=== PATIENT | male | born 1980 | race African-American/Black ===

== ENCOUNTER 2018-12-01 08:52 | Day surgery (SDC) | payer OTHER, SELFPAY | END 2018-12-01 14:28 | disposition home or self-care (01) | PROVIDERS: Visit Provider Orthopaedic Surgery | DX: S62.306A Unspecified fracture of fifth metacarpal bone, right hand, initial encounter for closed fracture (principal); S62.304A Unspecified fracture of fourth metacarpal bone, right hand, initial encounter for closed fracture; W22.8XXA Striking against or struck by other objects, initial encounter; F17.210 Nicotine dependence, cigarettes, uncomplicated | CPT/HCPCS: 26615 ×2; 73120; 76000; C1713 ×2; J0690; J1100; J2001; J2250; J2405; J2704; J3010 ×3 ==

== ENCOUNTER → 2019-03-22 | Outpatient (CLI) | payer OTHER, SELFPAY | DX: Z01.89 Encounter for other specified special examinations (principal); Z13.6 Encounter for screening for cardiovascular disorders | CPT/HCPCS: 71046 ==

== ENCOUNTER 2019-10-26 15:37 | Outpatient (CLI) | payer OTHER, SELFPAY ==
--- NOTE | 2019-10-26 15:44 | XR_ITS ---
WS: [id number] Chest 2 views, 10/26/2019 Clinical Data: REGULATED PROGRAM MONITORING Comparison: PA and lateral chest, 03/22/2019. Findings: No nodules, masses or effusions are seen. The heart is normal. The pulmonary vascularity is not increased. No pneumonia or pneumothorax is seen. XR/XR chest 2V* [id number] Impression: Negative chest.
== END 2019-10-26 15:38 | disposition home or self-care (01) ==
LOC: RADWPI 15:40
PROVIDERS: Visit Provider Preventive Medicine Occupational Medicine
DX: Z01.89 Encounter for other specified special examinations (principal)
CPT/HCPCS: 71046

== ENCOUNTER → 2020-03-12 16:30 | Outpatient (BNVA) | payer SELFPAY | PROVIDERS: Visit Provider Nurse Practitioner Family | DX: Z20.828 Contact with and (suspected) exposure to other viral communicable diseases (principal); J06.9 Acute upper respiratory infection, unspecified; R43.0 Anosmia | CPT/HCPCS: 87635 ==

== ENCOUNTER → 2020-10-23 11:21 | Outpatient (BNVA) | payer OTHER, SELFPAY | PROVIDERS: Visit Provider Nurse Practitioner Family | DX: Z20.822 Contact with and (suspected) exposure to COVID-19 (principal) | CPT/HCPCS: 87635 ==

== ENCOUNTER → 2021-01-04 12:02 | Outpatient (BNVA) | payer OTHER, SELFPAY | PROVIDERS: Visit Provider Nurse Practitioner Family | DX: Z20.822 Contact with and (suspected) exposure to COVID-19 (principal) | CPT/HCPCS: 87635 ==

== ENCOUNTER → 2021-02-28 10:50 | Outpatient (BNVA) | payer OTHER, SELFPAY | PROVIDERS: Visit Provider Emergency Medicine | DX: Z20.822 Contact with and (suspected) exposure to COVID-19 (principal) | CPT/HCPCS: 87635 ==

== ENCOUNTER 2021-04-12 12:12 | Emergency (ER) | payer SELFPAY ==
[2021-04-12 12:21] VITALS: BP 164/90; PULSE 74; RESP 14; TEMP 37.1; O2SAT 97; BMI 30.9
--- NOTE | 2021-04-12 12:30 | ECG_ITS ---
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 Measurements Intervals [place] Rate: 70 P: 56 GA: 157 QRS: 64 QRSD: 92 T: -8 QT: 351 QTc: 379 Interpretive Statements SINUS RHYTHM ABNORMAL QRS-T ANGLE [QRS-T AXIS DIFFERENCE > 60] No previous ECG available for comparison Electronically Signed On 04-13-2021 4:48:24 USED CAR SALES SUPERVISOR by Faraz Schwab M.D. [id number]
--- NOTE | 2021-04-12 12:30 | XR_ITS ---
WS: [id number] CHEST XRAY TECHNIQUE: Portable chest. CLINICAL INFORMATION: dyspnea/cough COMPARISON: October 26, 2019 FINDINGS: Heart: Heart size upper limits of normal. Lungs: Lungs are clear. No consolidation or pleural effusion. No acute pulmonary infiltrates. Bones: Normal visualized bony structures. XR/XR chest 1V portable [id number] IMPRESSION: 1. Heart size upper limits of normal. 2. No acute pulmonary infiltrates.
--- NOTE | 2021-04-12 12:30 | W.ED.FEVER ---
HPI - Fever General: Chief Complaint: Fever Stated Complaint: fever, shaking Time Seen by Provider: 04/12/21 12:21 History of Present Illness: HPI Narrative: 40-year-old male presents to the emergency room with complaint of fever and shaking. Has had chills fatigue myalgias headache for the last 2 days he reports a temp up to 103. He denies any cough no anosmia. Denies any dysuria urgency or frequency. No chest pain no abdominal pain. No hematuria no hematochezia melena hematemesis coffee-ground emesis. MD elicited complaint: fever and malaise Onset (ago): day(s) (2) Exacerbating factors: nothing Relieving factors: nothing Associated symptoms: Reports chills and myalgias; Deny abdominal pain, flank pain, chest pain, confusion, cough, diarrhea, dysuria, extremity pain, headache(s), nasal congestion, nausea, night sweats, rash, rhinorrhea, short of breath, sinus pain, stiffness, sore throat, vomiting or weight loss Treatments prior to arrival fever: acetaminophen Review of Systems Const: Reports: chills; Denies: night sweats ENMT: Denies: nasal congestion or sinus pain Card: Denies: chest pain Resp: Denies: dyspnea, productive cough or non-productive cough GI: Denies: abdominal pain, nausea, vomiting or diarrhea : Denies: flank pain or dysuria Musc: Denies: extremity pain Skin/Breast: Denies: rash or pruritus Neuro: Denies: headache(s) or confusion PFS ED PFSH: Social History Smoking and tobacco status: current every day smoker cigarettes Packs smoked per day: 1 Alcohol intake: never Physical Exam Const: COMMON NORMALS: no acute distress GENERAL APPEARANCE: cooperative and comfortable ORIENTATION/CONSCIOUSNESS: Yes awake, Yes oriented to person, Yes oriented to place and Yes oriented to time HENMT: COMMON NORMALS: normocephalic, atraumatic and hearing grossly normal bilaterally HEAD & SCALP: normocephalic and atraumatic Neck/C-Spine: COMMON NORMALS: no JVD Lymph: LYMPHATIC: no lymphadenopathy noted and no lymphedema noted Resp: COMMON NORMALS: normal respiratory effort, No retractions, No use of accessory muscles and clear to auscultation bilaterally AUSCULTATION: clear to auscultation bilaterally Cardio: COMMON NORMALS: no JVD, regular rate, regular rhythm and No murmurs present (Cardio) RATE: regular rate RHYTHM: regular rhythm GI: COMMON NORMALS: Soft to palpation and No hepatosplenomegaly present AUSCULTATION: Yes normoactive bowel sounds PALPATION: Yes Soft to palpation, No Tenderness to palpation present (GI), No Guarding due to palpation present (GI) and Yes No hepatosplenomegaly present Extremity: COMMON NORMALS: normal to inspection, capillary refill normal, no clubbing, cyanosis or edema, no calf tenderness and no pedal edema Neuro: SENSORIUM/ORIENTATION: Yes oriented to person, Yes oriented to place and Yes oriented to time Skin: COMMON NORMALS: no rashes or lesions noted GENERAL SKIN EXAM: no rashes or lesions noted Course Vital Signs: Vital signs: Vital Signs Temperature 98.8 F 04/12/21 12:21 Pulse Rate 76 04/12/21 16:19 Respiratory Rate 18 04/12/21 16:19 Blood Pressure 139/90 04/12/21 16:19 Pulse Oximetry 97 04/12/21 16:19 MDM - Fever MDM Narrative: Medical decision making narrative: Patient Covid positive. Based on the history suspected he would be. He also had self prone began to breathe better. His oxygen sats are good he is not require any oxygen at this point he can be discharged home he would like to do monoclonal antibodies we will try to set that up through the case resolution specialist. Lab Data: Labs: Lab Results 04/12/21 04/12/21 04/12/21 13:00 13:00 13:00 WBC 3.5 10^3/uL L 10^ 3/uL (4.0-10.0) RBC 5.61 10^6/uL H 10 ^6/uL (4.1-5.3) Hgb 12.6 g/dL g/dL (11.7-16.6) Hct 40.0 % L % (42.0-52.0) MCV 71.3 fl L fl (80-94) MCH 22.5 pg L pg (28.0-34.0) MCHC 31.5 g/dL g/dL (30.0-36.0) RDW 17.8 % H % (12.1-15.1) Plt Count 263 10^3/cmm 10^3 /cmm (130-400) MPV 10.2 fL fL (7.4-10.4) Neut % (Auto) 39.4 % % Lymph % (Auto) 47.5 % % [facility] % (Auto) 12.5 % % Eos % (Auto) 0.0 % % Baso % (Auto) 0.3 % % Neut # (Auto) 1.36 10^3/uL L 10 ^3/uL (1.8-7.7) Lymph # (Auto) 1.6 10^3/uL 10^3/ uL (0.8-4.8) [facility] # (Auto) 0.4 10^3/uL 10^3/ uL (0.2-0.9) Eos # (Auto) 0.0 10^3/uL 10^3/ uL (0.0-0.8) Baso # (Auto) 0.0 10^3/uL 10^3/ uL (0.0-0.1) Nucleated RBC % (a uto) 0 % % Nucleated RBCs # 0.0 /100WBC /100W BC Sodium Cancelled Potassium Cancelled Chloride Cancelled Carbon Dioxide Cancelled Anion Gap Cancelled BUN Cancelled Creatinine Cancelled GFR Calculation Cancelled Glucose Cancelled Calculated Osmolal ity Cancelled Lactate Cancelled Calcium Cancelled Total Bilirubin Cancelled AST Cancelled ALT Cancelled Alkaline Phosphata se Cancelled NT-Pro-B Natriuret Pep Cancelled Total Protein Cancelled Albumin Cancelled Globulin Cancelled Lipase Coronavirus 229E ( PCR) Hepatitis A IgM Ab Hep Bs Antigen Hep B Core IgM Ab Hepatitis C Antibo dy SARS-CoV-2 (PCR) 04/12/21 04/12/21 04/12/21 13:00 13:45 13:45 WBC RBC Hgb Hct MCV MCH MCHC RDW Plt Count MPV Neut % (Auto) Lymph % (Auto) [facility] % (Auto) Eos % (Auto) Baso % (Auto) Neut # (Auto) Lymph # (Auto) [facility] # (Auto) Eos # (Auto) Baso # (Auto) Nucleated RBC % (a uto) Nucleated RBCs # Sodium 136 mmol/L mmol/L (136-145) Potassium 4.1 mmol/L mmol/L (3.5-5.1) Chloride 102 mmol/L mmol/L (98-107) Carbon Dioxide 19 mmol/L L mmol/ L (22-29) Anion Gap 19.1 H (5-19) BUN 13 mg/dL mg/dL (6-20) Creatinine 1.1 mg/dL mg/dL (0.7-1.2) GFR Calculation 89.7 mL/min L mL/ min (90-130) Glucose 93 mg/dL mg/dL (65-115) Calculated Osmolal ity 282 mOsm/kg L mOs m/kg (285-295) Lactate 0.6 mmol/L mmol/L (0.5-2.2) Calcium 8.0 mg/dL L mg/dL (8.5-10.5) Total Bilirubin 0.2 mg/dL mg/dL (0.15-1.2) AST 54 U/L H U/L (0-40) ALT 84 U/L H U/L (0-41) Alkaline Phosphata se 103 IU/L IU/L (40-130) NT-Pro-B Natriuret Pep 71 pg/mL pg/mL (0-125) Total Protein 7.0 g/dL g/dL (6.6-8.7) Albumin 3.9 g/dL g/dL (3.5-5.2) Globulin 3.1 g/dL g/dL (1.3-4.6) Lipase Coronavirus 229E ( PCR) Not detected (NOT DETECT) Hepatitis A IgM Ab Hep Bs Antigen Hep B Core IgM Ab Hepatitis C Antibo dy SARS-CoV-2 (PCR) Detected A (NOT DETECT) 04/12/21 04/12/21 13:45 15:10 WBC RBC Hgb Hct MCV MCH MCHC RDW Plt Count MPV Neut % (Auto) Lymph % (Auto) [facility] % (Auto) Eos % (Auto) Baso % (Auto) Neut # (Auto) Lymph # (Auto) [facility] # (Auto) Eos # (Auto) Baso # (Auto) Nucleated RBC % (a uto) Nucleated RBCs # Sodium Potassium Chloride Carbon Dioxide Anion Gap BUN Creatinine GFR Calculation Glucose Calculated Osmolal ity Lactate Calcium Total Bilirubin AST ALT Alkaline Phosphata se NT-Pro-B Natriuret Pep Total Protein Albumin Globulin Lipase 42 U/L U/L (13-60) Coronavirus 229E ( PCR) Hepatitis A IgM Ab Non-reactive (Nonreactive) Hep Bs Antigen Non-reactive (Nonreactive) Hep B Core IgM Ab Non-reactive (Nonreactive) Hepatitis C Antibo dy Non-reactive (Nonreactive) SARS-CoV-2 (PCR) Discharge Plan Discharge Patient Disposition: Home Clinical Impression: COVID-19 Condition: Stable Prescriptions: No Action Tylenol Ex Str Rapid Release 500 mg Tablet 2,000 mg PO Q6H PRN (Reason: PAIN/FEVER) RF: 0 ibuprofen 200 mg Tablet 800 mg PO Q4H PRN (Reason: PAIN/FEVER) RF: 0 Excedrin Migraine 250-250-65 mg Tablet 4 tab PO Q6H PRN (Reason: Migraine Headache) RF: 0 Discharge Orders: Discharge ED (Routine); Ordered 04/12/21 Ordered By: Jaime Nguyen Other Ambulatory Orders: Request for MCA (Routine) Timeframe: 1 Day Facility: [facility] - Location: Outpatient [facility] Ordered By: Jaime Nguyen Patient Instructions: Opioid Safety Coding Level of Care Code ED Microcomputer Support Specialist for Chg Fwd Exam Comprehensive
[2021-04-12 13:12] LABS: Basophils % 0.3 %; Hemoglobin 12.6 g/dL (11.7-16.6); Lymphocytes # 1.6 10^3/uL (0.8-4.8); Lymphocytes % 47.5 %; Mean Corpuscular HGB Conc 31.5 g/dL (30.0-36.0); Mean Corpuscular Hemoglobin 22.5 pg (28.0-34.0); Mean Corpuscular Volume 71.3 fl (80-94); Mean Platelet Volume 10.2 fL (7.4-10.4); Monocytes # 0.4 10^3/uL (0.2-0.9); Monocytes % 12.5 %; Neutrophils # 1.36 10^3/uL (1.8-7.7); Neutrophils % 39.4 %; Nucleated Red Blood Cells % 0 %; Platelet Count 263 10^3/cmm (130-400); Red Blood Count 5.61 10^6/uL (4.1-5.3); Red Cell Distribution Width 17.8 % (12.1-15.1); White Blood Count 3.5 10^3/uL (4.0-10.0)
[2021-04-12 13:32] VITALS: BP 131/83; PULSE 70; PULSE 72; RESP 18; O2SAT 96
[2021-04-12 14:12] LABS: Lactate (Lactic Acid level) 0.6 mmol/L (0.5-2.2)
[2021-04-12 14:22] LABS: Alanine Aminotransferase 84 U/L (0-41); Albumin Level 3.9 g/dL (3.5-5.2); Alkaline Phosphatase 103 IU/L (40-130); Anion Gap 19.1 (5-19); Aspartate Amino Transferase 54 U/L (0-40); Blood Urea Nitrogen 13 mg/dL (6-20); Carbon Dioxide 19 mmol/L (22-29); Chloride 102 mmol/L (98-107); Globulin 3.1 g/dL (1.3-4.6); Glomerular Filtration Rate 89.7 mL/min (90-130); Glucose 93 mg/dL (65-115); NT Pro B Type Natriuretic Pept 71 pg/mL (0-125); Osmolality Calculated 282 mOsm/kg (285-295); Potassium 4.1 mmol/L (3.5-5.1); Sodium 136 mmol/L (136-145); Total Bilirubin 0.2 mg/dL (0.15-1.2)
[2021-04-12 15:00] VITALS: BP 139/90; PULSE 76; RESP 18; O2SAT 97
[2021-04-12 15:00] LABS: Lipase 42 U/L (13-60)
[2021-04-12 15:00] LABS: Adenovirus Not Detected (NOT DETECT); Chlamydia Pneumoniae Not Detected (NOT DETECT); Coronavirus 229E,HKU1,NL63,OC4 Not Detected (NOT DETECT); Human Metapneumovirus Not Detected (NOT DETECT); Human Rhinovirus/Enterovirus Not Detected (NOT DETECT); Influenza A Not Detected (NOT DETECT); Influenza A H1 Not Detected (NOT DETECT); Influenza A H1-2009 Not Detected (NOT DETECT); Influenza A H3 Not Detected (NOT DETECT); Influenza B Not Detected (NOT DETECT); Mycoplasma Pneumoniae Not Detected (NOT DETECT); Parainfluenza Virus Type 1 Not Detected (NOT DETECT); Parainfluenza Virus Type 2 Not Detected (NOT DETECT); Parainfluenza Virus Type 3 Not Detected (NOT DETECT); Parainfluenza Virus Type 4 Not Detected (NOT DETECT); Respiratory Syncytial Virus A Not Detected (NOT DETECT); Respiratory Syncytial Virus B Not Detected (NOT DETECT); SARS-COV-2 Detected (NOT DETECT)
[2021-04-12 16:01] LABS: Hepatitis A Antibody IgM Non-Reactive (Nonreactive); Hepatitis B Core IgM Non-Reactive (Nonreactive); Hepatitis B Surface Antigen Non-Reactive (Nonreactive); Hepatitis C Virus Antibody Non-Reactive (Nonreactive)
[2021-04-12 16:19] VITALS: BP 139/90; PULSE 76; RESP 18; O2SAT 97
== END 2021-04-12 16:20 | disposition home or self-care (01) ==
PROVIDERS: Physician Assistant; Emergency Provider Family Medicine
DX: U07.1 COVID-19 (principal); F17.210 Nicotine dependence, cigarettes, uncomplicated
CPT/HCPCS: 71045; 80053; 80074; 83605; 83690; 83880; 85025; 87040; 87205; 87635; 93005; 99284

== ENCOUNTER 2021-04-15 14:24 | Outpatient (CLI) | payer SELFPAY ==
[2021-04-15 14:29] VITALS: BMI 30.5
[2021-04-15 14:40] VITALS: BP 130/77; PULSE 78; RESP 20; TEMP 37.1; O2SAT 98
[2021-04-15 15:00] VITALS: BP 132/87; PULSE 75; RESP 20; TEMP 37; O2SAT 98
[2021-04-15 16:00] VITALS: BP 138/91; PULSE 73; RESP 17; TEMP 37.1; O2SAT 98
== END 2021-04-15 14:25 | disposition home or self-care (01) ==
LOC: OPS 14:27
PROVIDERS: Visit Provider Family Medicine
DX: U07.1 COVID-19 (principal)
CPT/HCPCS: 96365

== ENCOUNTER 2021-08-22 07:15 | Emergency (ER) | payer SELFPAY ==
[2021-08-22 07:20] VITALS: BP 145/85; PULSE 79; RESP 16; TEMP 36.5; O2SAT 98
--- NOTE | 2021-08-22 07:33 | CT_ITS ---
WS: [id number] CT ABDOMEN AND PELVIS NONCONTRAST HISTORY: diffuse/mainly mid to upper abdominal pain TECHNIQUE: Imaging performed through the abdomen and pelvis. Coronal and sagittal reformats are submi tted. All CT scans at [facility] use at least one of these dose optimization techniques: auto mated exposure control; mA and/or kV adjustment per patient size (includes targeted exams where dose is matched to clinical indication); or iterative reconstruction. DLP: 1943.2 mGy.cm COMPARISON: 03/29/2007 Lower thorax: Lung bases are clear. Visualized heart is normal. No hiatal hernia. Liver: Normal size liver. No mass or bile duct dilatation. Gallbladder: Normal gallbladder. Pancreas: Normal size and attenuation. Normal pancreatic duct. No pancreatitis or mass. Spleen: Normal. Adrenal glands: Normal. No mass. Right kidney: Normal size kidney with no mass or hydronephrosis. Left kidney: Normal size kidney with no mass or hydronephrosis. Aorta: Normal abdominal aorta, no aneurysm or atherosclerosis. No free fluid, intraperitoneal air or significant lymphadenopathy. GI tract: Stomach is not distended. No small bowel obstruction. There is high density material within the colon which is probably medicinal. No oral contrast was given for this examination. The appendix is not definitely identified. What I believe is the appendix is dilated to 8 mm which is a minimal d ilatation and there is no inflammation. There is mild proliferation of fat in the RIGHT lower quadran t which can be seen with inflammatory bowel disease/Crohn's. There is no inflammation within the soft tissues. Abdominal wall: Negative. No hernia. Pelvis: Normal. Osseous structures: Unremarkable. CT/CT abdomen pelvis wo con [id number] IMPRESSION: 1. No acute abdominal or pelvic abnormalities are identified. There are no inf lammatory changes and no ascites. 2. No renal stone or obstruction. 3. Mild fatty proliferation in the RIGHT lower quadrant can be seen with infla mmatory bowel disease/Crohn's. I do believe the appendix is identified and very minimally prominent but no adjacent inflammation. Cannot confirm appendicitis on this examination.
--- NOTE | 2021-08-22 07:34 | W.ED.ABDPA2 ---
HPI - Abdominal Pain General: Chief Complaint: Abdominal Pain Stated Complaint: ABD Pain Time Seen by Provider: 08/22/21 07:23 Source: patient Mode of arrival: ambulatory Limitations: no limitations History of Present Illness: Patient is a nice 40-year-old male who presents to ED today for a complaint of abdominal pain that began around noon yesterday while he was at work. Patient states pain has been constant and persistent since onset. He describes most of his pain to his epigastric/periumbilical regions and states there is no radiation. He does not complain of any nausea, vomiting, or diarrhea. He does note yesterday he had 4 bowel movements were normally he goes once daily but he did not notice any change in consistency. No bloody stools. He has not been running fevers. No poor food exposures. No sick contacts. He is not having any urinary symptoms. He does not complain of back pain. No chest pain or shortness of breath. He has no significant PMH. No previous abdominal surgeries. He is not anticoagulated, no NSAID use, no alcohol use. MD elicited complaint: abdominal pain Pertinent past history: none Onset (ago): day(s) (yesterday) Pain Consistency: constant Location: Diffuse, Epigastric and Periumbilical Quality: other (states it feels like he has been punched to his abdomen) Radiation: none Migration to: no migration Exacerbating factors: nothing Relieving factors: nothing Associated Symptoms: Reports anorexia; Denies chills, diarrhea, dysuria, fever(s), heartburn, hematochezia, hematuria, hematemesis, melena, nausea, syncope and vomiting Review of Systems Const: Denies: fever(s), chills, body aches, fatigue or malaise Eyes: Denies: change in vision or blurry vision Card: Denies: chest pain, palpitations, irregular heart rhythm, lightheadedness, syncope or dyspnea on exertion Resp: Denies: dyspnea, productive cough or pain on inspiration GI: Reports: abdominal pain; Denies: nausea, vomiting, hematemesis, heartburn, diarrhea, pain on defecation, rectal pain, hematochezia or melena : Denies: flank pain, difficulty urinating, dysuria, hematuria or genital pain Musc: Denies: neck pain, back pain or joint pain Skin/Breast: Denies: rash Neuro: Denies: headache(s), numbness in extremities, weakness in extremities, sensory changes or dizziness PFSH ED PFSH: Social History Smoking and tobacco status: current every day smoker cigarettes Packs smoked per day: 1 Alcohol intake: never Physical Exam Const: COMMON NORMALS: no acute distress, patient oriented x3, no limitations, alert and well nourished GENERAL APPEARANCE: cooperative ORIENTATION/CONSCIOUSNESS: Yes awake, Yes oriented to person, Yes oriented to place and Yes oriented to time HENMT: COMMON NORMALS: normocephalic and atraumatic HEAD & SCALP: normal to inspection, normocephalic and atraumatic Chest: COMMONS NORMALS: normal inspection of the chest and normal palpation of entire chest wall Resp: COMMON NORMALS: normal respiratory effort and clear to auscultation bilaterally AUSCULTATION: clear to auscultation bilaterally Cardio: COMMON NORMALS: regular rate and regular rhythm RATE: regular rate RHYTHM: regular rhythm GI: COMMON NORMALS: Normal to inspection, nondistended, normoactive bowel sounds present, Soft to palpation, No hepatosplenomegaly present and no masses INSPECTION: Yes normal to inspection AUSCULTATION: Yes normoactive bowel sounds PALPATION: Yes Soft to palpation, Yes Tenderness to palpation present (GI) (throughout abdomen with guarding must mostly upper quads/periumbilical), Yes Guarding due to palpation present (GI), No Rigid due to palpation and Yes No hepatosplenomegaly present : COMMON NORMALS: Yes no CVA tenderness BLADDER/KIDNEY EXAM: Yes no CVA tenderness Back/Pelvis: COMMON NORMALS: no CVA tenderness, thoracic and lumbar spine normal to inspection, no thoracic nor lumbar tenderness and thoraco-lumbar ROM normal Extremity: COMMON NORMALS: normal to inspection GENERAL: Yes normal exam except as noted Neuro: CELINA COMA SCALE: document GCS findings Celina coma scale eye opening: Spontaneous Celina coma scale verbal response: Orientated [place] coma scale motor response: Obey commands [place] coma scale total score: 15 COMMON NORMALS: patient oriented x3, moves all extremities, no focal motor deficits and no sensory deficits noted SENSORIUM/ORIENTATION: Yes alert, Yes oriented to person, Yes oriented to place and Yes oriented to time Skin: COMMON NORMALS: no rashes or lesions noted GENERAL SKIN EXAM: no rashes or lesions noted Course Vital Signs: Vital signs: Vital Signs Temperature 97.7 F 08/22/21 07:20 Pulse Rate 75 08/22/21 09:45 Respiratory Rate 16 08/22/21 07:54 Blood Pressure 117/88 08/22/21 09:45 Pulse Oximetry 94 08/22/21 09:45 MDM - Abdominal Pain Medical Decision Making Patient here with upper abdominal pains over the past 24 hours. His vital signs are stable. After IV medications/fluids, and GI cocktail he is currently rating his pain at a 2/10. Is not having any vomiting or stool changes. No fevers. Lab work is unremarkable. He has a normal white count. His UA is clear. CT scan showing no acute abdominal or pelvic abnormalities. I did speak to Dr. Jones directly she did state he had some mild proliferation in his RLQ that possibly could correspond with some inflammatory bowel disease. She states his appendix was mildly prominent however there was nothing that she felt would represent an acute appendicitis. Most of patient's pain is epigastric/periumbilical and he does not have any overt tenderness to his right lower quadrant. Patient was made aware of CT findings. At this point we will recommend close observation at home, bland/liquid diet, trial of OTC H2 jorge, along with return to ED precautions. Patient and significant other verbalized understanding. Lab Data : 08/22/21 08:01 08/22/21 08:01 Labs/Radiology: Radiology Impressions Abdomen/Pelvis CT 08/22/21 07:33 IMPRESSION: 1. No acute abdominal or pelvic abnormalities are identified. There are no inflammatory changes and no ascites. 2. No renal stone or obstruction. 3. Mild fatty proliferation in the RIGHT lower quadrant can be seen with inflammatory bowel disease/Crohn's. I do believe the appendix is identified and very minimally prominent but no adjacent inflammation. Cannot confirm appendicitis on this examination. Laboratory Results WBC 7.3 10^3/uL (4.0-10.0) 08/22/21 08:01 RBC 5.32 10^6/uL (4.1-5.3) H 08/22/21 08:01 Hgb 12.0 g/dL (11.7-16.6) 08/22/21 08:01 Hct 37.8 % (42.0-52.0) L 08/22/21 08:01 MCV 71.1 fl (80-94) L 08/22/21 08:01 MCH 22.6 pg (28.0-34.0) L 08/22/21 08:01 MCHC 31.7 g/dL (30.0-36.0) 08/22/21 08:01 RDW 15.9 % (12.1-15.1) H 08/22/21 08:01 Plt Count 316 10^3/cmm (130-400) 08/22/21 08:01 MPV 9.2 fL (7.4-10.4) 08/22/21 08:01 Neut % (Auto) 57.8 % 08/22/21 08:01 Lymph % (Auto) 32.0 % 08/22/21 08:01 [place] % (Auto) 7.4 % 08/22/21 08:01 Eos % (Auto) 2.1 % 08/22/21 08:01 Baso % (Auto) 0.4 % 08/22/21 08:01 Neut # (Auto) 4.20 10^3/uL (1.8-7.7) 08/22/21 08:01 Lymph # (Auto) 2.3 10^3/uL (0.8-4.8) 08/22/21 08:01 [place] # (Auto) 0.5 10^3/uL (0.2-0.9) 08/22/21 08:01 Eos # (Auto) 0.2 10^3/uL (0.0-0.8) 08/22/21 08:01 Baso # (Auto) 0.0 10^3/uL (0.0-0.1) 08/22/21 08:01 Nucleated RBC % (auto) 0 % 08/22/21 08:01 Nucleated RBCs # 0.0 /100WBC 08/22/21 08:01 Sodium 138 mmol/L (136-145) 08/22/21 08:01 Potassium 4.0 mmol/L (3.5-5.1) 08/22/21 08:01 Chloride 105 mmol/L (98-107) 08/22/21 08:01 Carbon Dioxide 23 mmol/L (22-29) 08/22/21 08:01 Anion Gap 14.0 (5-19) 05/12/22 08:01 BUN 13 mg/dL (6-20) 08/22/21 08:01 Creatinine 1.1 mg/dL (0.7-1.2) 08/22/21 08:01 GFR Calculation 89.7 mL/min (90-130) L 08/22/21 08:01 Glucose 93 mg/dL (65-115) 08/22/21 08:01 Calculated Osmolality 286 mOsm/kg (285-295) 08/22/21 08:01 Calcium 9.3 mg/dL (8.5-10.5) 08/22/21 08:01 Total Bilirubin 0.3 mg/dL (0.15-1.2) 08/22/21 08:01 AST 35 U/L (0-40) 08/22/21 08:01 ALT 40 U/L (0-41) 08/22/21 08:01 Alkaline Phosphatase 123 IU/L (40-130) 08/22/21 08:01 Total Protein 7.8 g/dL (6.6-8.7) 08/22/21 08:01 Albumin 4.3 g/dL (3.5-5.2) 08/22/21 08:01 Globulin 3.5 g/dL (1.3-4.6) 08/22/21 08:01 Lipase 25 U/L (13-60) 08/22/21 08:01 Urine Color Yellow (Yellow) 08/22/21 08:45 Urine Appearance Clear (CLEAR) 08/22/21 08:45 Urine pH 7 (5-7) 08/22/21 08:45 Ur Specific [place] 1.010 (1.005-1.030) 08/22/21 08:45 Urine Protein Neg (Negative) 08/22/21 08:45 Urine Glucose (UA) Norm (Normal) 08/22/21 08:45 Urine Ketones Negative (Negative) 08/22/21 08:45 Urine Blood Neg (Negative) 08/22/21 08:45 Urine Nitrate Negative (Negative) 08/22/21 08:45 Urine Bilirubin Neg (Negative) 08/22/21 08:45 Urine Urobilinogen Norm mg/dL (Negative) 08/22/21 08:45 Ur Leukocyte Esterase Negative (Negative) 08/22/21 08:45 Discharge Plan Discharge Patient Disposition: Home Clinical Impression: Upper abdominal pain of unknown etiology Condition: Stable Prescriptions: New ondansetron 4 mg tablet,disintegrating 4 mg PO Q8H PRN (Reason: nausea and vomiting) Qty: 14 0RF Discontinued ibuprofen 200 mg Tablet 800 mg PO Q4H PRN (Reason: PAIN/FEVER) 0RF Excedrin Migraine 250-250-65 mg Tablet 4 tab PO Q6H PRN (Reason: Migraine Headache) 0RF No Action acetaminophen [Tylenol Ex Str Rapid Release] 500 mg Tablet 2,000 mg PO Q6H PRN (Reason: PAIN/FEVER) 0RF Discharge Orders: Discharge ED (Routine); Ordered 08/22/21 Ordered By: Twyla Oliva Patient Instructions: Abdominal Pain (ED) Activity Restrictions/Additional Instructions: As we discussed you need to do a bland liquid diet over the next 48 hours and slowly advance as tolerated. We need to see you back in the emergency department for worsening or severe abdominal discomfort, repetitive episodes of vomiting or diarrhea, blood in your vomit or stools, fever greater than 100.4, or any other concerns you may have. I hope you begin to feel better soon. Stand Alone Forms: Work/School Release Coding Level of Care Code ED Developer [employer] Upholstering for Hay Fwd Exam Comprehensive
[2021-08-22 07:39] VITALS: BP 104/87; PULSE 78; RESP 16; O2SAT 97
[2021-08-22] MEDS: sodium chloride 0.9% 1,000 ML 999 ML IV (07:53)
[2021-08-22 07:54] VITALS: RESP 16
[2021-08-22] MEDS: morphine 4 mg/mL SDV 1 mL IVP (07:54)
[2021-08-22] MEDS: ondansetron 2 mg/ML SDV 2 mL 4 MG IVP (07:54)
[2021-08-22 08:11] LABS: Basophils % 0.4 %; Eosinophils # 0.2 10^3/uL (0.0-0.8); Eosinophils % 2.1 %; Hematocrit 37.8 % (42.0-52.0); Lymphocytes # 2.3 10^3/uL (0.8-4.8); Mean Corpuscular HGB Conc 31.7 g/dL (30.0-36.0); Mean Corpuscular Hemoglobin 22.6 pg (28.0-34.0); Mean Corpuscular Volume 71.1 fl (80-94); Mean Platelet Volume 9.2 fL (7.4-10.4); Monocytes # 0.5 10^3/uL (0.2-0.9); Monocytes % 7.4 %; Neutrophils % 57.8 %; Nucleated Red Blood Cells % 0 %; Platelet Count 316 10^3/cmm (130-400); Red Blood Count 5.32 10^6/uL (4.1-5.3); Red Cell Distribution Width 15.9 % (12.1-15.1); White Blood Count 7.3 10^3/uL (4.0-10.0)
[2021-08-22 08:27] LABS: Alanine Aminotransferase 40 U/L (0-41); Albumin Level 4.3 g/dL (3.5-5.2); Alkaline Phosphatase 123 IU/L (40-130); Aspartate Amino Transferase 35 U/L (0-40); Blood Urea Nitrogen 13 mg/dL (6-20); Calcium 9.3 mg/dL (8.5-10.5); Carbon Dioxide 23 mmol/L (22-29); Chloride 105 mmol/L (98-107); Globulin 3.5 g/dL (1.3-4.6); Glomerular Filtration Rate 89.7 mL/min (90-130); Glucose 93 mg/dL (65-115); Lipase 25 U/L (13-60); Osmolality Calculated 286 mOsm/kg (285-295); Sodium 138 mmol/L (136-145); Total Bilirubin 0.3 mg/dL (0.15-1.2); Total Protein 7.8 g/dL (6.6-8.7)
[2021-08-22 08:55] LABS: Add Urine Microscopic? NO; Charge for UA Resulting for Rev
[2021-08-22 08:57] LABS: Bilirubin Urine Neg (Negative); Blood Urine Neg (Negative); Glucose Urine UA Norm (Normal); Ketones Urine Negative (Negative); Leukocyte Esterase Urine Negative (Negative); Nitrate Urine Negative (Negative); Protein Urine Neg (Negative); Urine Appearance Clear (CLEAR); Urine Color Yellow (Yellow); Urobilinogen Urine Norm (Negative); pH Urine 7 (5-7)
[2021-08-22] MEDS: lidocaine 2% viscous 15 ML, aluminum-mag hydrox-simethicon 30 ML, sucralfate oral liq 1 GM PO (09:02)
[2021-08-22 09:45] VITALS: BP 117/88; PULSE 75; O2SAT 94
== END 2021-08-22 09:46 | disposition home or self-care (01) ==
PROVIDERS: Emergency Provider Physician Assistant
DX: R10.10 Upper abdominal pain, unspecified (principal); F17.210 Nicotine dependence, cigarettes, uncomplicated; R93.5 Abnormal findings on diagnostic imaging of other abdominal regions, including retroperitoneum
CPT/HCPCS: 74176; 80053; 81003; 83690; 85025; 96361; 96374; 96375; 99284; J2270; J2405; J7030

== ENCOUNTER 2022-06-26 14:21 | Emergency (ER) | payer SELFPAY ==
[2022-06-26 14:26] VITALS: BP 135/80; PULSE 84; RESP 18; TEMP 36.7; O2SAT 98; BMI 31.1
--- NOTE | 2022-06-26 14:32 | W.ED.EXTPRO ---
HPI - Extremity Problem General: Chief complaint: Extremity Injury, Lower Stated complaint: pain in both legs Time Seen by Provider: 06/26/22 14:25 Source: patient Mode of arrival: ambulatory Limitations: no limitations History of Present Illness: Patient is a 41-year-old male who presents to ED today with with complaint of bilateral knee pain. Patient states he has had pain in the right knee for about 3 months now. He states he intermittently will get knee swelling that causes him quite a bit of discomfort. He states usually if he will take it easy for a few days he will notice the swelling improves. He does feel like 3 months ago he injured the knee by hyperextending it. He has not noticed any pain or swelling distally into his lower leg. He states a few days ago he began noticing pain posterior aspect of his left knee. He states pain is worsened when knee is in full extension and with walking. He feels like he has noticed a bulge posteriorly. Patient does not complain of any color or temperature changes to either leg. Denies calf pain. MD Complaint: joint swelling and joint pain Pain Consistency: constant Location: left, right and knee Radiation: none Relieving factors: immobilization, elevation and rest Exacerbating factors: range of motion and walking Associated symptoms: Reports no associated symptoms; Deny chest pain, fever(s) or rash Review of Systems Const: Denies: fever(s), chills, body aches, fatigue or malaise Card: Denies: chest pain Resp: Denies: dyspnea GI: Denies: abdominal pain Musc: Reports: joint pain and joint swelling; Denies: neck pain, back pain, extremity pain, extremity swelling, joint redness or joint warmth Skin/Breast: Denies: rash Neuro: Reports: difficulty walking (secondary to knee pain); Denies: numbness in extremities, weakness in extremities or sensory changes [facility] ED PFSH: Social History Smoking and tobacco status: current every day smoker cigarettes Packs smoked per day: 1 Alcohol intake: never Physical Exam Const: COMMON NORMALS: no acute distress, patient oriented x3, no limitations, healthy appearing, alert and well nourished GENERAL APPEARANCE: cooperative ORIENTATION/CONSCIOUSNESS: Yes awake, Yes oriented to person, Yes oriented to place and Yes oriented to time HENMT: COMMON NORMALS: normocephalic and atraumatic HEAD & SCALP: normal to inspection, normocephalic and atraumatic GI: COMMON NORMALS: Normal to inspection, nondistended, normoactive bowel sounds present, Soft to palpation and no masses PALPATION: Yes Soft to palpation Extremity: COMMON NORMALS: capillary refill normal and no calf tenderness GENERAL: Yes normal exam except as noted RIGHT LOWER EXTREMITY: Yes knee joint (obvious knee effusion-otherwise normal exam) Right knee: Yes ROM (limited secondary to swelling; no pain out of proportion to exam), Yes neurovascular exam (normal) and Yes other (exam is not consistent with septic arthritis ) LEFT LOWER EXTREMITY: Yes knee joint (posterior knee swelling/bulge consistent with George's Cyst) Left knee: Yes inspection (bulge best visualized with patient standing/knee in full extension), Yes ROM (normal) and Yes neurovascular exam (normal) OTHER: Palpable pulses demonstrated throughout bilateral lower extremities including femoral popliteal, dorsalis pedis, and posterior tibial. No redness/warmth to the extremity. Sensory appears intact. Neuro: COMMON NORMALS: patient oriented x3, moves all extremities, no focal motor deficits and no sensory deficits noted SENSORIUM/ORIENTATION: Yes alert, Yes oriented to person, Yes oriented to place and Yes oriented to time Skin: COMMON NORMALS: no rashes or lesions noted GENERAL SKIN EXAM: no rashes or lesions noted TRAUMA: no lacerations or abrasions Course Vital Signs: Vital signs: Vital Signs Temperature 98.0 F 06/26/22 14:26 Pulse Rate 74 06/26/22 15:40 Respiratory Rate 18 06/26/22 15:40 Blood Pressure 133/78 06/26/22 15:40 Pulse Oximetry 98 06/26/22 15:40 Oxygen Delivery Me thod 06/26/22 14:26 MDM - Extremity (Nontraumatic) Medical Decision Making Patient with complaints of bilateral knee pain. His right knee has bothered him over the past 3 months or so and according to history seems to have intermittent effusions associated with his discomfort. There is nothing on exam to suggest a septic arthritis at this time. He has some complaints of posterior left knee pain over the past few days. Clinically patient has a George's cyst. I do not have any concern for a popliteal aneurysm. We will go ahead and place referral to orthopedics as they can address both issues for patient. Return ED precautions given. Lab Data Radiology Impressions Knee X-Ray 06/26/22 14:45 IMPRESSION: No acute findings. 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
--- NOTE | 2022-06-26 14:45 | XRR_ITS ---
PROCEDURE INFORMATION: Exam: XR Right Knee Exam date and time: 06/26/2022 3:16 PM Age: 41 years old Clinical indication: Patient HX: Bilateral knee pain. Patient states he has had pain in the right knee for about 3 months now. He states he intermittently will get knee swelling that causes him quite a bit of discomfort. He states usually if he will take it easy for a few days he will notice the swelling improves. He does feel like 3 months ago he injured the knee by hyperextending it. He has not noticed any pain or swelling distally into his lower leg. He states a few days ago he began noticing pain posterior aspect of his left knee. He states pain is worsened when knee is in full extension and with walking. He feels like he has noticed a bulge posteriorly. ; Additional info: Pain/swelling TECHNIQUE: Imaging protocol: Radiologic exam of the right knee. Views: 3 views. COMPARISON: No relevant prior studies available. FINDINGS: Bones/joints: Negative for acute bony abnormality. Soft tissues: Normal. XR/XR knee RT 3V* [id number] IMPRESSION: No acute findings.
[2022-06-26 15:40] VITALS: BP 133/78; PULSE 74; RESP 18; O2SAT 98
--- NOTE | 2022-06-26 16:33 | DCPLANNER ---
Addendum entered by Vicky Rowland 07/01/22 12:59: bilingual branch manager called patient due to no primary care physician - patient declines at this time Original Note: bilingual branch manager called patient due to no primary care physician - no answer at this time
--- NOTE | 2022-06-26 16:50 | DCPLANNER ---
Addendum entered by Vicky Rowland 07/02/22 08:46: Patient had an appointment with ortho - patient did attend appointment Addendum entered by Vicky Rowland 07/01/22 07:53: Patient has a follow up appointment scheduled for Friday, July 01, 2022 at 1:00 with Luis Armando Riley at ortho. Clinic will call patient with appointment information. Original Note: business planning manager had message to schedule a follow up appointment for patient with ortho. business planning manager sent patients information to the front office staff at ortho. Patients information will be printed and reviewed. clinic will call patient with appointment information.
--- NOTE | 2022-06-26 16:58 | DCPLANNER ---
Addendum entered by Vicky Rowland 06/26/22 17:00: this was charted on wrong patient. Original Note: practice manager had message to schedule an outpatient halter monitor and stress test for patient. The patient has [employer] insurance, patient was referred to cardiology. practice manager sent patients information to the front office staff at [facility]. Patients information will be printed and reviewed. Clinic will call patient with appointment information.
== END 2022-06-26 15:41 | disposition home or self-care (01) ==
PROVIDERS: Emergency Provider Physician Assistant
DX: M25.461 Effusion, right knee (principal); M71.22 Synovial cyst of popliteal space [Baker], left knee; F17.210 Nicotine dependence, cigarettes, uncomplicated
CPT/HCPCS: 73562; 99283